=== PATIENT | male | born 1965 | race Caucasian/White ===

== ENCOUNTER → 2024-06-23 | Day surgery (SDC) | payer BC ==
[~2024-06-23] MED LIST: CIALIS20 MG PO; CO Q-10100 MG PO; DILTIAZEM 24HR180 MG PO; FAMOTIDINE20 MG PO; GENVOYA TABLET1 EACH PO; LOSARTAN POTAS100 MG PO; OMEGA 3 1,0001 EACH PO; SUDAFED 12 HOU120 MG PO; TRAZODONE HCL50 MG PO; TYLENOL PM EXS1 EACH PO; VITAMIN D31250 MCG PO
[2024-06-23] MEDS: LACTATED RINGER'S 1,000 ML ONE (09:42)
[2024-06-23 12:01] VITALS: TEMP 97.2
[2024-06-23 12:30] VITALS: BP 132/94; PULSE 63; RESP 19; O2SAT 99
== END | disposition home or self-care (01) ==
LOC: OR 08:31
PROVIDERS: ATTEND Internal Medicine Gastroenterology
DX: D12.2 Benign neoplasm of ascending colon (principal); D12.4 Benign neoplasm of descending colon; D12.3 Benign neoplasm of transverse colon; K57.30 Diverticulosis of large intestine without perforation or abscess without bleeding; K64.8 Other hemorrhoids; K63.9 Disease of intestine, unspecified; K59.09 Other constipation; R10.10 Upper abdominal pain, unspecified; I10 Essential (primary) hypertension; B20 Human immunodeficiency virus [HIV] disease; G47.33 Obstructive sleep apnea (adult) (pediatric); R09.89 Other specified symptoms and signs involving the circulatory and respiratory systems; R94.31 Abnormal electrocardiogram [ECG] [EKG]; Z79.899 Other long term (current) drug therapy
CPT/HCPCS: 45380; 45384; 45385; 93005; J7121